=== PATIENT | male | born 1975 | race Caucasian/White ===

== ENCOUNTER → 2018-05-31 | Outpatient (CLI) | payer OTHER | END | disposition home or self-care (01) | LOC: MRI 09:15 | DX: M23.8X1 Other internal derangements of right knee (principal); M17.11 Unilateral primary osteoarthritis, right knee; M94.261 Chondromalacia, right knee | CPT/HCPCS: 73721 ==

== ENCOUNTER → 2019-07-15 | Outpatient (CLI) | payer OTHER ==
[~2019-07-15] MED LIST: ASPI-482 PO; CHOL10002 PO; CLON-77 PO; CYCL10TA2 PO; CYCL5TAB PO; DIPH25CA58 PO; DOCU-150 PO; ESCITALOPRAM OX10 MG PO; IBUP-1060 PO; LEVO25TA4 PO; LEVO50TA5 PO; LISI-130 PO; LISI10TA2 PO; METF500T16 PO; METO-239 PO; METO25TA4 PO; OXYC1TAB15 PO; OXYC1TAB19 PO; OXYC1TAB22 PO; PREG150C PO; ZOLP5TAB PO
[2019-07-15 12:59] LABS: BASO # 0.1 x10^3/uL (0.0-0.2); BASO % 1 % (0-3); EOS # 0.3 x10^3/uL (0.0-0.7); EOS % 2 % (0-3); HEMATOCRIT 45.6 % (39.0-53.0); HEMOGLOBIN 15.2 g/dL (13.0-17.5); LYMPH % 27 % (24-48); MEAN CORPUSCULAR HEMOGLOBIN 30 pg (25-35); MEAN CORPUSCULAR HGB CONC 33 g/dL (31-37); MEAN CORPUSCULAR VOLUME 89 fL (79-100); MONO # 1.1 x10^3/uL (0.0-1.1); MONO % 10 % (0-9); NEUT # 6.7 x10^3/uL (1.8-7.7); NEUT % 60 % (31-73); PLATELET COUNT 254 x10^3/uL (140-400); RED BLOOD COUNT 5.11 x10^6/uL (4.30-5.70); RED CELL DISTRIBUTION WIDTH 13.6 % (11.5-14.5); WHITE BLOOD COUNT 11.2 x10^3/uL (4.0-11.0)
[2019-07-15 13:23] LABS: ALBUMIN 3.7 g/dL (3.4-5.0); CALCIUM 8.9 mg/dL (8.5-10.1); CREATININE 1.1 mg/dL (0.7-1.3); GFR 73.1
== END | disposition home or self-care (01) ==
LOC: SURGPAT 12:20
PROVIDERS: ATTEND Surgery
DX: Z01.818 Encounter for other preprocedural examination (principal); K43.2 Incisional hernia without obstruction or gangrene; Z88.8 Allergy status to other drugs, medicaments and biological substances
CPT/HCPCS: 36415; 80048; 82040; 85025

== ENCOUNTER 2019-07-22 10:13 | Day surgery (SDC) | payer OTHER ==
[~2019-07-22] VITALS: Ht 167.6 cm; Wt 122.5 kg
[~2019-07-22 10:13] MED LIST changes: +BUPIVACAINE-EPI 0.5%-1:200000 MPF 30 ML VIAL. INJ ONE; -DOCU-150 PO; +HYDROmorphone 2 MG/ML VIAL IV PRN; +IV RINGERS,LACTATED 1000ML 1,000 ML IV SCH; -OXYC1TAB22 PO; +PROCHLORPERAZINE 10 MG/2 ML VIAL. IV PRN
[2019-07-22] MEDS ORDERED: ONDANSETRON PF 4 MG/2 ML VIAL. ONE (10:33)
[2019-07-22] MEDS ORDERED: DEXAMETHASONE SOD PHOS 4 MG/ML VIAL ONE (10:33)
[2019-07-22] MEDS ORDERED: ROCURONIUM 50 MG/5 ML VIAL. ONE (10:33)
[2019-07-22] MEDS ORDERED: PROPOFOL 20 ML IV ONE ×2 (10:33→12:44)
[2019-07-22] MEDS ORDERED: LIDOCAINE 2% PF 5 ML VIAL. ONE (10:33)
[2019-07-22] MEDS ORDERED: MIDAZOLAM HCL/PF 2 MG/2 ML VIAL. ONE (10:33)
[2019-07-22] MEDS ORDERED: fentaNYL PF VIAL 100 MCG/2 ML VIAL ONE ×2 (10:33→12:41)
[2019-07-22] MEDS ORDERED: SEVOFLURANE 61 TO 120 MINUTES. IH ONE ×2 (12:45→13:10)
[2019-07-22] MEDS ORDERED: GLYCOPYRROLATE 1 MG/5 ML VIAL. ONE (12:49)
[2019-07-22] MEDS ORDERED: NEOSTIGMINE 10 MG/10 ML VIAL. ONE (12:49)
[2019-07-22] MEDS ORDERED: KETOROLAC 30 MG/ML INJ FOR OR. INJ ONE (12:55)
[2019-07-22] MEDS: fentaNYL PF VIAL 100 MCG/2 ML VIAL IV PRN ×6 (13:41→14:31)
--- NOTE | 2019-07-22 13:48 | DISCH ---
DISCHARGE INSTRUCTIONS Condition on Discharge Condition on Discharge: Stable Activity After Discharge Activity Instructions for Disc: Activity as tolerated Lifting Instructions after Dis: No heavy lifting Driving Instructions after Dis: Do not drive (3-4 days) Diet after Discharge Diet after Discharge: Regular Wound Incision Care Wound/Incision Care: Ice to area for comfort Other wound/incision instructi: yuli shower Thursday Follow-Up Follow up with: Graeme next week DWAYNE SALAZAR MD Jul 22, 2019 13:48
--- NOTE | 2019-07-22 13:54 | PDOC ---
BRIEF OPERATIVE NOTE Date: Jul 22, 2019 Pre-Op Diagnosis recurrent ventral incisional hernia Post-Op Diagnosis same Procedure Performed repair with mesh SUE Surgeon Graeme Case Preparer And Liner Victoria CASTILLO Anesthesia Type: General Blood Loss 20cc IV Fluid 700cc Specimens Obtained none Findings incarcerated small bowel, old mesh Complications none Operative Note Wk # [id number] DWAYNE SALAZAR MD Jul 22, 2019 13:54
[2019-07-22] MEDS: MORPHINE SULFATE 2 MG/ML VIAL. IV PRN ×3 (14:01→14:36)
[2019-07-22] MEDS ORDERED: oxyCODONE/APAP 10/325 1 TAB TABLET PO ONE (14:15)
[2019-07-22 14:30] VITALS: BP 104/62
[2019-07-22] MEDS ORDERED: OXYC1TAB22 PO (15:04)
[2019-07-22] MEDS ORDERED: DOCU-150 PO (15:05)
--- NOTE | 2019-07-22 19:29 | OP ---
DATE OF SURGERY: 07/22/2019 PREOPERATIVE DIAGNOSIS: Recurrent ventral incisional hernia, incarcerated. POSTOPERATIVE DIAGNOSIS: Recurrent ventral incisional hernia, incarcerated. PROCEDURE: Repair with mesh, lysis of adhesions. SURGEON: Jose Miguel Salazar MD MANAGER RN CASE: ANNA Wyman. ANESTHESIA: General endotracheal. ESTIMATED BLOOD LOSS: 20 mL. INTRAVENOUS FLUIDS: 700 mL. DESCRIPTION OF PROCEDURE: The patient brought to the operating suite, given a general endotracheal anesthetic and the abdomen prepped and draped in usual sterile fashion. A curvilinear incision from just above the umbilicus to just below it was infiltrated with local anesthetic, incised and dissection carried down to the anterior sheath. The area of hernia was exposed circumferentially down to the anterior sheath. The sac was then opened and we set about reducing contents carefully. This included omentum, small bowel, and mesentery. A single serosal injury in the small bowel was repaired with a 3-0 Vicryl. No enterotomies were seen. Once we had adequately mobilized the abdominal contents, they were reduced and held in reduction with a patch of Ventrio ST mesh, medium oval. Correct sponge count was obtained prior to placement of the mesh. It was tacked at 12 o'clock and 6 o'clock with 0 PDS. It was tacked around the periphery with SorbaTack taking care to avoid the bowel. A 19-Italian round Saran drain placed, brought out at inferolateral stab wound, sewn to the skin with a silk stitch. Attenuated abdominal wall closed over the mesh with a running stitch of 0 Vicryl. When a second sponge count was correct, the subcutaneous tissue was approximated with 3-0 Vicryl and the skin closed with a subcuticular 4-0 Monocryl and Steri-Strips. Sterile dressing applied. Abdominal binder placed. The patient was awakened from his anesthetic and taken to the recovery room in satisfactory condition. JOSE MIGUEL SALAZAR MD DR: BROOK/rossi JOB#: [id number] / [id number]
== END 2019-07-22 15:49 | disposition home or self-care (01) ==
LOC: SURG 10:13
PROVIDERS: ATTEND Surgery
DX: K43.0 Incisional hernia with obstruction, without gangrene (principal); E78.5 Hyperlipidemia, unspecified; E03.9 Hypothyroidism, unspecified; I12.9 Hypertensive chronic kidney disease with stage 1 through stage 4 chronic kidney disease, or unspecified chronic kidney disease; E11.22 Type 2 diabetes mellitus with diabetic chronic kidney disease; N18.2 Chronic kidney disease, stage 2 (mild); F41.9 Anxiety disorder, unspecified; Z98.890 Other specified postprocedural states; E66.9 Obesity, unspecified; Z68.41 Body mass index [BMI] 40.0-44.9, adult; Z90.49 Acquired absence of other specified parts of digestive tract; Z87.891 Personal history of nicotine dependence; Z88.1 Allergy status to other antibiotic agents; Z79.84 Long term (current) use of oral hypoglycemic drugs
CPT/HCPCS: 49566; 49568; A7015; C1781; J1100; J1885; J1956; J2001; J2250; J2270; J2405; J2704; J2710; J3010; J3490

== ENCOUNTER 2019-10-18 08:35 | Emergency (ER) | payer OTHER ==
[~2019-10-18] VITALS: Ht 172.7 cm; Wt 123.4 kg
[~2019-10-18 08:35] MED LIST changes: -BUPIVACAINE-EPI 0.5%-1:200000 MPF 30 ML VIAL. INJ ONE; +DOCU-150 PO; -HYDROmorphone 2 MG/ML VIAL IV PRN; -IV RINGERS,LACTATED 1000ML 1,000 ML IV SCH; +OXYC1TAB22 PO; -PROCHLORPERAZINE 10 MG/2 ML VIAL. IV PRN
[2019-10-18 08:45] VITALS: BP 129/97
[2019-10-18] MEDS ORDERED: IPRATRPIUM/ALBUTEROL 0.5/2.5MG 3 ML NEBU. ONE (09:03)
[2019-10-18] MEDS ORDERED: IPRATRPIUM/ALBUTEROL 0.5/2.5MG 3 ML NEBU. NEB ONE (09:15)
--- NOTE | 2019-10-18 09:28 | RAD ---
Chest, PA and Lateral: Technique: PA and lateral views of the chest were obtained. History: Cough, shortness of breath. Comparison: None. Findings: The heart and pulmonary vasculature appear within normal limits. The lungs are clear. The pleural margins are clear. Impression: No acute chest process is seen. Electronically signed by: Gordo Hyman MD (10/18/2019 9:25 AM) [id number]
[2019-10-18] MEDS ORDERED: ALBU2.5V8 IH (09:44)
[2019-10-18] MEDS ORDERED: BENZ100C PO (09:44)
[2019-10-18] MEDS ORDERED: METH4TAB2 PO (09:44)
[2019-10-18] MEDS ORDERED: AZIT250T PO (09:44)
--- NOTE | 2019-10-18 09:44 | PHYS DOC ---
Past Medical History Past Medical History: Hypertension, Hypothyroid Additional Past Medical Histor: NEUROPATHY, CHRONIC BACK Past Surgical History: Appendectomy, Cholecystectomy, Other Additional Past Surgical Histo: HERNIA REPAIR Alcohol Use: None Drug Use: None Adult General Chief Complaint Chief Complaint: SHORTNESS OF BREATH [facility] Patient is a 44 year old patient with history of hypertension, hypothyroidism, chronic back pain who presents with complaint of cough and shortness of breath. Patient complaining of productive cough with green and yellow sputum for the last 10 days with episodes of shortness of breath and posttussive vomiting. Patient denies fever, sick contact, neck pain, myalgia, diarrhea and urinary symptom. Patient quit smoking 4 years ago and denies history of asthma. Patient states he took [id number] medication without improvement of his cough. Review of Systems Review of Systems Constitutional: Denies fever or chills [] Eyes: Denies change in visual acuity, redness, or eye pain [] HENT: Reports nasal congestion or sore throat Respiratory: Reports cough and shortness of breath Cardiovascular: No additional information not addressed in HPI [] GI: Denies abdominal pain, bloody stools or diarrhea, reports nausea and vomiting [] : Denies dysuria or hematuria [] Musculoskeletal: Denies back pain or joint pain [] Integument: Denies rash or skin lesions [] Neurologic: Denies headache, focal weakness or sensory changes [] Endocrine: Denies polyuria or polydipsia [] All other systems were reviewed and found to be within normal limits, except as documented in this note. Current Medications Current Medications Current Medications Medications (Trade) Dose Ordered Sig/Marcin Start Time Stop Time Status Last Admin Dose Admin Albuterol/ Ipratropium (Duoneb) 3 ml 1X ONCE 10/18/19 09:15 10/18/19 09:16 DC 10/18/19 09:08 3 ML Allergies Allergies Allergies Coded Allergies Type Severity Reaction Last Updated Verified amoxicillin Adverse Reaction Intermediate Nausea and Vomiting 07/22/19 Yes clavulanic acid Adverse Reaction Intermediate Nausea and Vomiting 07/22/19 Yes Physical Exam Physical Exam Constitutional: Well developed, well nourished, mild distress, non-toxic appearance, morbidly obese. [] HENT: Normocephalic, atraumatic, bilateral external ears normal, oropharynx moist, no oral exudates, nose normal. [] Eyes: PERRLA, EOMI, conjunctiva normal, no discharge. [] Neck: Normal range of motion, no tenderness, supple, no stridor. [] Cardiovascular:Heart rate regular rhythm, no murmur [] Lungs & Thorax: Bilateral breath sounds clear to auscultation [] Abdomen: Bowel sounds normal, soft, no tenderness, no masses, no pulsatile masses. [] Skin: Warm, dry, no erythema, no rash. [] Back: No tenderness, no CVA tenderness. [] Extremities: No tenderness, no cyanosis, no clubbing, ROM intact, no edema. [] Neurologic: Alert and oriented X 3, normal motor function, normal sensory funct ion, no focal deficits noted. [] Psychologic: Affect normal, judgement normal, mood normal. [] Current Patient Data Vital Signs Vital Signs Date Time Temp Pulse Resp B/P (MAP) Pulse Ox O2 Delivery O2 Flow Rate FiO2 10/18/19 09:05 97 Room Air 10/18/19 08:45 98.0 82 20 129/97 (108) 98.0 EKG EKG [] Radiology/Procedures Radiology/Procedures [][facility] [address] [place] [address] IMAGING REPORT Signed PATIENT: MARIO LOPEZ SR LACCOUNT: [id number] : 1975 LOCATION: ER AGE: 44 SEX: M EXAM STATUS: REG ER ORD. PHYSICIAN: DAVID MARTIN MD REASON: cough and shortness of breath for 10 days PROCEDURE: CHEST PA & LATERAL Chest, PA and Lateral: Technique: PA and lateral views of the chest were obtained. History: Cough, shortness of breath. Comparison: None. Findings: The heart and pulmonary vasculature appear within normal limits. The lungs are clear. The pleural margins are clear. Impression: No acute chest process is seen. Electronically signed by: Gordo Hyman MD (10/18/2019 9:25 AM) [id number] DICTATED and SIGNED BY: GORDO HYMAN MD DATE: 10/18/19 0925 Course & Med Decision Making Course & Med Decision Making Pertinent Imaging studies reviewed. (See chart for details) Evaluation of patient in ER showed 44-year-old male patient with cough and shortness of breath for 10 days. Patient had unremarkable chest x-ray. Patient treated with DuoNeb in ER and felt better. Plan discharge patient with diagnosis of acute bronchitis. I've spoken with the patient and/or caregivers. I've explained the patient's condition, diagnosis and treatment plan based on information available to me at this time. I've answered the patient's and/or caregivers questions and addressed any concerns. The patient and/or caregivers have a good understanding the patient's diagnosis, condition and treatment plan as can be expected at this point. Vital signs have been stabilized. The patient's condition is stable for discharge from the emergency department. The patient will pursue further outpatient evaluation with her primary care provider or other designated consulting physician as outlined in the discharge instructions. Patient and/or caregivers are agreeable to this plan of care and follow-up instructions have been explained in detail. The patient and/or careg angelica have received these instructions in written format and expressed understanding of these discharge instructions. The patient and her caregivers are aware that if any significant change in condition or worsening of symptoms should prompt him to immediately return to this of the closest emergency department. If an emergent department is not readily available I would encourage him to call 911. [place]on Disclaimer Dragon Disclaimer This electronic medical record was generated, in whole or in part, using a voice recognition dictation system. Departure Departure Impression: Primary Impression: Acute bronchitis Additional Impressions: Cough Morbid obesity Disposition: HOME, SELF-CARE (at 0940) Condition: IMPROVED Referrals: NO PCP (PCP) Patient Instructions: Acute Bronchitis, Cough, Adult Additional Instructions: Drink plenty of liquids Follow-up with your primary care physician in 3-5 days Return to ER if not getting better Scripts Azithromycin (ZITHROMAX) 250 Mg Tablet 250 MG PO as directed for ANTI-BIOTIC, #6 TAB 0 Refills Take 2 PO x 1 days Then take 1 PO q 24 hour for the next 4 days Prov: DAVID MARTIN MD 10/18/19 Benzonatate (TESSALON PERLE) 100 Mg Capsule 1 CAP PO TID for cough, #21 CAP Prov: DAVID MARTIN MD 10/18/19 Albuterol Sulfate (PROAIR HFA INHALER) 8.5 Gm Hfa.aer.ad 2 PUFF IH PRN Q4-6HRS PRN for wheezing for 21 Days, #1 INHALER 0 Refills Prov: DAVID MARTIN MD 10/18/19 Methylprednisolone (MEDROL) 4 Mg Tab.ds.pk 1 PKG PO UD for inflammation, #1 PKG Prov: DAVID MARTIN MD 10/18/19 Problem Qualifiers Primary Impression: Acute bronchitis Bronchitis organism: unspecified organism Qualified Codes: J20.9 - Acute bronchitis, unspecified DAVID MARTIN MD Oct 18, 2019 09:44
== END 2019-10-18 09:52 | disposition home or self-care (01) ==
LOC: ER 08:35
DX: J20.9 Acute bronchitis, unspecified (principal); E66.01 Morbid (severe) obesity due to excess calories; Z68.41 Body mass index [BMI] 40.0-44.9, adult; R11.10 Vomiting, unspecified; G89.29 Other chronic pain; I10 Essential (primary) hypertension; E03.9 Hypothyroidism, unspecified; Z88.1 Allergy status to other antibiotic agents; Z88.8 Allergy status to other drugs, medicaments and biological substances
CPT/HCPCS: 71046; 94640; 99284; J7620

== ENCOUNTER 2019-12-18 09:03 | Emergency (ER) | payer OTHER ==
[~2019-12-18] VITALS: Ht 172.7 cm; Wt 131.0 kg
[~2019-12-18 09:03] MED LIST changes: +ALBU2.5V8 IH; +AZIT250T PO; +BENZ100C PO; +METH4TAB2 PO
[2019-12-18 09:11] VITALS: BP 131/89
[2019-12-18] MEDS ORDERED: IPRATRPIUM/ALBUTEROL 0.5/2.5MG 3 ML NEBU. NEB ONE (09:30)
--- NOTE | 2019-12-18 09:30 | PHYS DOC ---
Past Medical History Past Medical History: Hypertension, Hypothyroid Additional Past Medical Histor: NEUROPATHY, CHRONIC BACK (TAHIR DUNAWAY APRN) Past Surgical History: Appendectomy, Cholecystectomy, Other Additional Past Surgical Histo: HERNIA REPAIR (TAHIR DUNAWAY APRN) Alcohol Use: None Drug Use: None (TAHIR DUNAWAY APRN) Adult General Chief Complaint Chief Complaint: COUGH HPI HPI Patient is a 44 year old male, accompanied by his , who presents to the emergency department with complaints of cough, shortness of breath, and wheezing. Patient states that the symptoms began a week ago, at that time he had a tactile fever and some vomiting. Patient denies any recent fever, vomiting, abdominal pain, nausea, or diarrhea. He reports fatigue and body aches. Patient denies any chest pain, palpitations, dizziness, weakness, or headache. Patient reports the redness is a he has been taking prednisone that was previously prescribed to him for the last 2 days and using albuterol at home. He currently denies any pain. All other ROS is neg unless otherwise noted in HPI. (TAHIR DUNAWAY APRN) Review of Systems Review of Systems See Above (TAHIR DUNAWAY APRN) Current Medications Current Medications Current Medications Medications (Trade) Dose Ordered Sig/Marcin Start Time Stop Time Status Last Admin Dose Admin Albuterol/ Ipratropium (Duoneb) 3 ml 1X ONCE 12/18/19 09:30 12/18/19 09:31 DC 12/18/19 09:28 3 ML (RY FUNEZ DO) Allergies Allergies Allergies Coded Allergies Type Severity Reaction Last Updated Verified amoxicillin Adverse Reaction Intermediate Nausea and Vomiting 12/18/19 Yes clavulanic acid Adverse Reaction Intermediate Nausea and Vomiting 12/18/19 Yes (RY FUNEZ DO) Physical Exam Physical Exam See Above Constitutional: Well developed, well nourished, no acute distress, non-toxic appearance, obese. [] HENT: Normocephalic, atraumatic, bilateral external ears normal, nose normal. [] Eyes: PERRLA, EOMI, conjunctiva normal, no discharge. [] Neck: Normal range of motion, no stridor. [] Cardiovascular:Heart rate regular rhythm, no murmur [] Lungs & Thorax: Bilateral breath sounds clear to auscultation in upper lobes, coarse with scattered expiratiory wheezes in posterior mid and lower lobes bilat, diminished lung sounds left lower lobe, regular rate, no retractions, speaking full sentences [] Skin: Warm, dry, no erythema, no rash. [] Back: No tenderness Extremities: No cyanosis, no clubbing, ROM intact, no edema. [] Neurologic: Alert and oriented X 3, no focal deficits noted. [] Psychologic: Affect normal, judgement normal, mood normal. [] (TAHIR DUNAWAY APRN) Current Patient Data Vital Signs Vital Signs Date Time Temp Pulse Resp B/P (MAP) Pulse Ox O2 Delivery O2 Flow Rate FiO2 12/18/19 09:29 96 Room Air 12/18/19 09:11 98.0 106 20 131/89 (103) 98.0 (RY FUNEZ DO) EKG EKG [] (TAHIR DUNAWAY APRN) Radiology/Procedures Radiology/Procedures PROCEDURE: CHEST PA & LATERAL Chest PA and lateral: Reason for examination: Cough for one week. Comparison is made to previous study dated 10/18/2019. The heart size is normal. Mediastinum is unremarkable. Lung cloud appear to show some increased density in the retrocardiac left lower lobe possibly with air bronchograms. Pneumonia cannot be excluded. No acute bony abnormalities are seen. Impression: Increased density in the retrocardiac left lower lobe possibly some air bronchograms and pneumonia cannot be excluded. Recommend clinical correlation and follow-up.[] (TAHIR DUNAWAY APRN) Course & Med Decision Making Course & Med Decision Making Pertinent Labs and Imaging studies reviewed. (See chart for details) Patient is a 44-year-old male who presented to the emergency room with complaints of a cough for the last week. Physical exam was concerning for diminished lung sounds in the left posterior base. He reported that he is already taking prednisone. Patient was given a breathing treatment in the emergency department he reported feeling better after this medication. Prescriptions were written for doxycycline and Tessalon Perles. The patient was encouraged follow-up with his primary care doctor in 1-2 days evaluation, return to the ER if symptoms worsen. [] (TAHIR DUNAWAY APRN) Dragon Disclaimer Dragon Disclaimer This electronic medical record was generated, in whole or in part, using a voice recognition dictation system. (TAHIR DUNAWAY APRN) Departure Departure Impression: Primary Impression: Acute bronchitis Disposition: HOME, SELF-CARE Condition: STABLE Referrals: NO PCP (PCP) Patient Instructions: Acute Bronchitis, [id number] Additional Instructions: Fill prescription(s) and use as directed. Recommend use of a Cool mist humidifier in room at bedtime. Alternate Tylenol or ibuprofen as needed for pain/fever. Increase clear fluids. Avoid airway triggers such as smoke, fragrance, dust, and pollen. Follow-up with your primary care doctor in 1-2 days, return to the ER if symptoms worsen. Scripts Benzonatate (TESSALON PERLE) 100 Mg Capsule 1 CAP PO TID PRN for COUGH for 7 Days, #21 CAP 0 Refills Prov: TAHIR DUNAWAY APRN 12/18/19 Doxycycline Hyclate (DOXYCYCLINE HYCLATE) 100 Mg Tablet 1 TAB PO BID, #14 TAB 0 Refills Prov: TAHIR DUNAWAY APRN 12/18/19 Attending Signature Attending Signature I have reviewed the PA/MULTI SLIDE MACHINE TENDER's note and plan of care. I was available for consultation as needed during the patient's visit in the emergency department. I agree with the clinical impression, plan, and disposition. (RY FUNEZ DO) Problem Qualifiers Primary Impression: Acute bronchitis Bronchitis organism: unspecified organism Qualified Codes: J20.9 - Acute bronchitis, unspecified TAHIR DUNAWAY APRN Dec 18, 2019 09:30 RY FUNEZ DO Dec 21, 2019 14:39
[2019-12-18] MEDS ORDERED: BENZ100C PO (09:49)
[2019-12-18] MEDS ORDERED: DOXY100T PO (09:49)
--- NOTE | 2019-12-18 09:58 | RAD ---
Chest PA and lateral: Reason for examination: Cough for one week. Comparison is made to previous study dated 10/18/2019. The heart size is normal. Mediastinum is unremarkable. Lung cloud appear to show some increased density in the retrocardiac left lower lobe possibly with air bronchograms. Pneumonia cannot be excluded. No acute bony abnormalities are seen. Impression: Increased density in the retrocardiac left lower lobe possibly some air bronchograms and pneumonia cannot be excluded. Recommend clinical correlation and follow-up. Electronically signed by: Barb Borjas MD (12/18/2019 9:55 AM) [id number]
== END 2019-12-18 10:06 | disposition home or self-care (01) ==
LOC: ER 09:03
DX: J20.9 Acute bronchitis, unspecified (principal); E03.9 Hypothyroidism, unspecified; I10 Essential (primary) hypertension; G89.29 Other chronic pain
CPT/HCPCS: 71046; 94640; 99284; J7620

== ENCOUNTER → 2020-01-12 | Outpatient (CLI) | payer OTHER ==
[2019-12-18 09:11] VITALS: BP 131/89
[~2020-01-12] MED LIST changes: +DOXY100T PO
--- NOTE | 2020-01-12 10:41 | KCIC ---
MRI Lumbar Spine without contrast History: Degenerative disc disease, lower extremity weakness, new onset bilateral leg weakness, falls Technique: Multiplanar, multi sequential noncontrast MR imaging was performed of the lumbar spine. Comparison: July 17, 2017 Findings: Vertebral body stature is overall maintained. There is again mild to moderate degenerative disc disease greater posteriorly L5-S1, mild degenerative disc disease at L4-5 and mild disc desiccation L3-4. There is again some edema of the posterior subcutaneous fat of the lower back. Conus terminates near L1-L2. There are anterior annular tears L4-5 and L3-4. AP alignment is similar. L1-L2: Neural foramina and spinal canal are adequate, this level not included on the axial images. L2-L3: This level was not included on the axial images. Neural foramina and spinal canal are adequate. L3-L4: There is again very minimal disc osteophyte complex. Spinal canal is overall adequate. Neural foramina are adequate. L4-L5: There is again minimal disc osteophyte complex. There is again prominence of epidural fat in the lateral recesses bilaterally and also posteriorly. Spinal canal is overall adequate. There is very mild narrowing of the inferior neural foramina by disc osteophyte complex. L5-S1: None seen on the previous exam, there is a small focus of extradural signal abnormality in the right lateral recess at and just above the intervertebral disc space level with anterior extent near the margin of the adjacent disc osteophyte complex and bulge. Small focus of signal change is estimated about 5 to 6 mm AP by 5 mm transverse by 5 mm CC. This is segmentally inseparable from the right S1 nerve root in the right lateral recess. Spinal canal is not significantly narrowed. There is again mild facet degenerative change. There is mild bilateral neural foramina compromise. Impression: 1. Not apparent on the 2017 exam, there is a small focus of signal abnormality in the right lateral recess at and just above the L5-S1 intervertebral disc space level. This may be a small disc extrusion/sequestration with contact of the descending right S1 nerve root, considered more likely than a small mass associated with the right S1 nerve root. Post contrast imaging may be beneficial. There is no new significant lumbar spinal stenosis. There is again degenerative disc disease greatest at L5-S1, to lesser degree at L4-5. There is minimal spondylosis. There is mild neural foramina compromise bilaterally at L5-S1 and to lesser degree at L4-5. Electronically signed by: Davy Stout MD (01/12/2020 10:38 AM) [id number]
== END ==
LOC: KCIC MRI 08:40
PROVIDERS: ATTEND Nurse Practitioner Family
DX: M51.37 Other intervertebral disc degeneration, lumbosacral region (principal); M47.816 Spondylosis without myelopathy or radiculopathy, lumbar region; M48.07 Spinal stenosis, lumbosacral region; M25.78 Osteophyte, vertebrae; E88.2 Lipomatosis, not elsewhere classified
CPT/HCPCS: 72148